=== PATIENT | female | born 1985 | race Caucasian/White ===

== ENCOUNTER 2019-05-04 12:36 | Emergency (ER) | payer BC ==
[~2019-05-04] VITALS: Ht 170.2 cm; Wt 59.9 kg
[~2019-05-04 12:36] MED LIST: NEXPLANON68 MG; NORCO 5-325 TA1 EACH PO; ORABASE11.9 GM MUCOUS MEM; TRAMADOL 50 MG50 MG PO
[2019-05-04] MEDS ORDERED: PREDNISONE 10 M10 MG PO (12:57)
[2019-05-04] MEDS ORDERED: FLEXERIL PO (12:57)
[2019-05-04 13:24] VITALS: BP 180/120
== END 2019-05-04 13:26 | disposition home or self-care (01) ==
LOC: M.ERS 12:36
DX: M54.42 Lumbago with sciatica, left side (principal); E66.01 Morbid (severe) obesity due to excess calories; Z90.49 Acquired absence of other specified parts of digestive tract; Z98.890 Other specified postprocedural states; Z68.20 Body mass index [BMI] 20.0-20.9, adult; Z88.0 Allergy status to penicillin; Z88.8 Allergy status to other drugs, medicaments and biological substances

== ENCOUNTER 2020-07-12 09:03 | Emergency (ER) | payer OTHER ==
[~2020-07-12] VITALS: Ht 170.2 cm; Wt 149.7 kg
[~2020-07-12 09:03] MED LIST changes: +FLEXERIL PO; +PREDNISONE 10 M10 MG PO
[2020-07-12] MEDS ORDERED: HYDROCODON-ACE1 EAC7 PO (09:41)
[2020-07-12 10:16] VITALS: BP 165/85
== END 2020-07-12 10:16 | disposition home or self-care (01) ==
LOC: M.ERS 09:03
DX: S93.492A Sprain of other ligament of left ankle, initial encounter (principal); Z88.0 Allergy status to penicillin; W01.0XXA Fall on same level from slipping, tripping and stumbling without subsequent striking against object, initial encounter; Y93.89 Activity, other specified; Y92.511 Restaurant or cafe as the place of occurrence of the external cause; Y99.8 Other external cause status

== ENCOUNTER 2020-09-12 08:47 | Emergency (ER) | payer OTHER ==
[~2020-09-12] VITALS: Ht 167.6 cm; Wt 154.2 kg
[~2020-09-12 08:47] MED LIST changes: +HYDROCODON-ACE1 EAC7 PO
[2020-09-12] MEDS ORDERED: ZPAK PO (09:30)
[2020-09-12] MEDS ORDERED: DEXAMETHASONE 44 M1 PO (09:30)
[2020-09-12 09:34] VITALS: BP 185/106
== END 2020-09-12 09:35 | disposition home or self-care (01) ==
LOC: M.ERS 08:47
DX: U07.1 COVID-19 (principal); Z90.49 Acquired absence of other specified parts of digestive tract; Z98.890 Other specified postprocedural states; Z88.0 Allergy status to penicillin; Z91.09 Other allergy status, other than to drugs and biological substances